=== PATIENT | male | born 1985 | race Caucasian/White ===

== ENCOUNTER 2025-05-02 07:08 | Day surgery (SDC) | payer BC, MEDICAID, SELFPAY ==
[2025-05-02 07:29] VITALS: BMI 24.2
[2025-05-02 07:41] VITALS: BP 127/65; PULSE 63; RESP 18; TEMP 36.2; O2SAT 97
--- NOTE | 2025-05-02 08:05 | ANES.PREANE2 ---
Pre-Anesthetic Assessment Height/Weight: Height 1.68 m Weight 68.039 kg Temp Pulse Resp BP Pulse Ox O2 Del Method 97.2 F L 63 18 127/65 97 Room Air 05/02/25 07:41 05/02/25 07:41 05/02/25 07:41 05/02/25 07:41 05/02/25 07:41 05/02/25 07:41 Preop Diagnosis: colonscopy Operation Date: 05/02/25 08:30 Proposed Procedures p Colonoscopy [id number] G0105 Z12.11(Not Applicable) - Dante Guardado MD Was Beta Jeff taken within 24 hours: N/A Was Clonidine taken within 24 hours: N/A Last intake: Intake Last Liquid Date 05/01/25 Last Liquid Time 00:00 Last Solid Date 04/30/25 Last Intake: 08:07 Social Alcohol and Tobacco 1/2 pack pack(s) per day 20 pack years Exam alert and oriented x 3 Airway Submandibular: within normal limits Cervical ROM: within normal limits Mallampati: Class II Dentition: full Pulmonary None reported CV/HEM None reported None reported Hepatic None reported GI None reported Metabolic None reported Musc/skel None reported Neuropsych None reported Anesthetic Plan ASA status: 2 Anesthesia: Anesthesia Evaluation Medications/Allergies Home Medications ?Medication ?Instructions ?Recorded ?Confirmed ?Last Taken ?Type pantoprazole 40 mg tablet,delayed 40 mg PO BID 03/02/25 04/27/25 04/28/25 History release Allergies Allergy/AdvReac Type Severity Reaction Status Date / Time Alpha-Gal Allergy Severe ALGY-Anaphy Verified 05/02/25 07:28 (Imkiszoyo-Mabjx-8,3-Gala laxis Current Medications Generic Name Dose Route Start Last Admin Trade Name Freq PRN Reason Stop Dose Admin Sodium Chloride 1,000 mls @ 15 mls/hr 05/02/25 07:23 05/02/25 07:34 Sodium Chloride 0.9% IV 05/03/25 07:22 15 mls/hr .Q24H PRN Administration COLONOSCOPY FLUIDS PFSH Anesthesia Social History Smoking and tobacco/nicotine status: never used tobacco/nicotine
--- NOTE | 2025-05-02 08:25 | W.PM.OPSFHP ---
Same Day Surgery H&P Indication for Procedure/HPI DATE OF PROCEDURE: May 02, 2025 CHIEF COMPLAINT/INDICATIONFOR SURGICAL PROCEDURE: screening colonoscopy PREOP DIAGNOSIS: screening colonoscopy PLANNED PROCEDURE: Operation Date: 05/02/25 08:30 Proposed Procedures p Colonoscopy [id number] G0105 Z12.11(Not Applicable) - Dante Guardado MD Medications/Allergies* Home Medications ?Medication ?Instructions ?Recorded ?Confirmed ?Type pantoprazole 40 mg tablet,delayed 40 mg PO BID 03/02/25 04/27/25 History release Allergies/Adverse Reactions Allergy/AdvReac Type Severity Reaction Status Date / Time Alpha-Gal Allergy Severe ALGY-Anaphy Verified 05/02/25 07:28 (Lzysteeoe-Mnvmw-8,3-Gala laxis Current Medications: Generic Name Dose Route Start Last Admin Trade Name Freq PRN Reason Stop Dose Admin Sodium Chloride 1,000 mls @ 15 mls/hr 05/02/25 07:23 05/02/25 07:34 Sodium Chloride 0.9% IV 05/03/25 07:22 15 mls/hr .Q24H PRN Administration COLONOSCOPY FLUIDS Pertinent History/Comorbid Conditions* Social History Smoking and tobacco/nicotine status: never used tobacco/nicotine Pertinent Exam Findings alert, oriented x 3, clear to auscultation bilaterally, regular rate & rhythm and procedure specific exam findings abdomen soft, nt, nd Recommendations Risks and benefits of procedure reviewed and Patient/family agree to proceed Surgery/Procedure today Coding Level of Care Code Acute Code for Chg Fwd
[2025-05-02 08:47] VITALS: BP 115/80; PULSE 78; RESP 16; TEMP 36.2; O2SAT 98
[2025-05-02 09:03] VITALS: BP 114/95; PULSE 73; RESP 18; O2SAT 98
--- NOTE | 2025-05-02 09:12 | ANE.PACU2 ---
Inpatient post-anesthesia follow up: Airway intact: Yes Vital signs: Temperature 97.1 F Pulse Rate 73 Respiratory Rate 18 Blood Pressure 114/95 Pulse Oximetry 98 Oxygen Delivery Me thod Room Air Oxygen Flow Rate Fraction of Inspir ed Oxygen Hydration adequate: Yes Nausea and vomiting: No Pain level: 1 Mental status: Baseline
== END 2025-05-02 09:12 | disposition home or self-care (01) ==
PROVIDERS: PCP Nurse Practitioner Family; Visit Provider Student in an Organized Health Care Education/Training Program
PROC: 0DJD8ZZ Inspection of Lower Intestinal Tract, Via Natural or Artificial Opening Endoscopic (ICD-10-PCS; CPT 45378; principal; 2025-05-02 08:30)
DX: Z12.11 Encounter for screening for malignant neoplasm of colon (principal); K52.9 Noninfective gastroenteritis and colitis, unspecified; K57.30 Diverticulosis of large intestine without perforation or abscess without bleeding; K21.9 Gastro-esophageal reflux disease without esophagitis; Z91.014 Allergy to mammalian meats
CPT/HCPCS: 45380; 88305; J2704; J7030

== ENCOUNTER → 2025-06-07 11:07 | Outpatient (BNVA) | payer BC, MEDICAID, SELFPAY | PROVIDERS: PCP Nurse Practitioner Family; Visit Provider Physician Assistant | DX: S69.91XA Unspecified injury of right wrist, hand and finger(s), initial encounter (principal); X58.XXXA Exposure to other specified factors, initial encounter | CPT/HCPCS: 73130 ==